=== PATIENT | female | born 1950 | race Caucasian/White ===

== ENCOUNTER 2019-12-20 15:35 | Emergency (ER) | payer MEDICARE, MEDICAID, SELFPAY ==
[2019-12-20 15:59] VITALS: BP 155/85; PULSE 97; RESP 18; TEMP 37.4; O2SAT 94
--- NOTE | 2019-12-20 17:04 | ED.WEAKNESS ---
HPI - Weakness General Chief complaint: Weakness Stated complaint: Bilateral swelling of knees and sob Source: patient Mode of arrival: ambulatory History of Present Illness HPI Narrative: Laxmi Pena is a 69-year-old who complains of 3 days of the following: Heavy weight on both shoulders and upper arms at rest, made worse with flexion or abduction. Unable to go beyond 90?, worse on the right side, as well as pain and swelling in the right knee, and some mild discomfort in the left (which she attributes to increased use because of pain on the right). Pain increases with flexion/extension - particularly standing up from sitting position. She describes the shoulder pain is squeezing and pressure. The righ should pain was much more severe yesterday than today. Her knees have not been popping or giving way. 2 weeks ago she developed rhinorrhea cough and nausea with diffuse myalgias. She was started on a course of antibiotics for 7 days. Her symptoms were gone for 3 - 4 days, until 3 days ago. Related Data Allergies Allergy/AdvReac Type Severity Reaction Status Date / Time codeine Allergy Unknown Verified 12/20/19 16:05 Review of Systems Constitutional: Constitutional: Reports no additional constitutional complaints ENT: Denies nasal congestion and Denies sore throat Cardiovascular: Cardiovascular: Denies chest pain and Denies pedal edema Respiratory: Comments: Minor dyspnea with exertion, no cough Gastrointestinal: Comments: no nausea vomiting diarrhea or abdomin Genitourinary: Comments: no dysuria Musculoskeletal: Musculoskeletal: Reports no additional musculoskeletal complaints Integumentary/Breasts: Comments: no rash Neurologic: Denies numbness Psychiatric: Psychiatric: Denies anxiety and Denies depression [facility] Surgical History Surgical History (Updated 12/20/19 @ 18:40 by Nestor Gonzalez MD) H/O: hysterectomy Family History Family History (Updated 12/20/19 @ 18:41 by Nestor Gonzalez MD) Mother CAD (coronary artery disease) COPD (chronic obstructive pulmonary disease) Father CHF (congestive heart failure) Exam Narrative: Exam Narrative: sitting on the side of the bed. Affect is flat. Const: General: no acute distress Orientation/consciousness: patient oriented x3 HENMT: Head: normal to inspection Face and sinus: no sinus tenderness Mouth: Yes Normal oral and palatal mucosa present Throat: posterior oropharynx normal Eyes: Conjunctivae: conjunctivae normal Neck: Other: 1+ tonsillar lymph nodes slight tenderness Chest: Chest palpation & inspection: normal inspection of the chest and no tenderness Resp: Effort & Inspection: normal respiratory effort Auscultation: clear to auscultation bilaterally Cardio: Rate: regular rate Rhythm: regular rhythm GI: GI Palp: Yes Soft to palpation, No Tenderness to palpation present (GI) and No Guarding due to palpation present (GI) : General: Yes no CVA tenderness Neuro: General: no focal motor deficits Extrem: Other: tender right more than left anterior subacromial region. No crepitation with range of motion pain with abduction of about 80? on the right side at about 90? on the left side. Pain with internal rotation against resistance Exam of the right knees are difficult secondary to obesity. There may be minor swelling INR Cialis the patellar tendons. The medial patella area is tender. No pain with patellar compression Course Course Emergency Course: Pain decreased after dose of ibuprofen. Pt advised of results. Plan: rest. No work 12/21 - 12/23. Follow up with PCP Vital Signs Vital signs: Vital Signs Temperature 37.4 C 12/20/19 15:59 Pulse Rate 97 12/20/19 15:59 Respiratory Rate 18 12/20/19 15:59 Blood Pressure 155/85 H 12/20/19 15:59 Pulse Oximetry 94 12/20/19 15:59 Temperature 37.4 C 12/20/19 15:59 Pulse Rate 97 12/20/19 15:59 Respiratory Rate 18 12/20/19 18:58 Blood Pressure 155
[2019-12-20] MEDS: IBUPROFEN 600 MG TABLET PO (17:16)
[2019-12-20 17:30] LABS: Basophils Absolute Auto 0.07 K/mm3 (0.00-0.10); Eosinophils Absolute Auto 0.14 K/mm3 (0.02-0.50); Hematocrit 41.7 % (35.0-42.0); Hemoglobin 13.3 g/dL (11.7-13.8); Immature Granulocyte Absolute 0.02 K/mm3 (0.00-0.00); Immature Granulocyte Percent A 0.3 % (0.0-0.0); Lymphocytes Absolute Auto 2.64 K/mm3 (1.10-4.50); Lymphocytes Percent Auto 38.7 % (18.0-42.0); Mean Corpuscular HGB Conc 31.9 g/dL (32.0-36.0); Mean Corpuscular Hemoglobin 29.8 pg (27.0-31.0); Mean Corpuscular Volume 93.3 fL (78.0-102.0); Mean Platelet Volume 9.9 fl (9.2-11.8); Monocytes Absolute Auto 0.43 K/mm3 (0.10-0.90); Monocytes Percent Auto 6.3 % (2.0-11.0); Neutrophils Absolute Auto 3.5 K/mm3 (1.7-7.2); Neutrophils Percent Auto 51.7 % (50.0-70.0); Platelet Count Result 325 K/mm3 (150-420); Red Blood Count 4.47 M/mm3 (4.20-5.40); Red Cell Distribution Width 13.4 % (11.6-14.4); White Blood Count 6.8 K/mm3 (4.8-10.8)
[2019-12-20 17:30] LABS: Add Urine Microscopic? YES; Appearance Urine Sl Cloudy (Clear); Bilirubin Urine Negative (Negative); Blood Urine Negative (Negative); Color Urine Straw (Yellow); Glucose Urine UA Negative (Negative); Ketones Urine Negative (Negative); Leukocyte Esterase Ur Negative (Negative); Nitrate Urine Negative (Negative); Protein Urine Trace (Negative); Specific Grav Ur 1.025 (1.010-1.020); Urobilinogen Urine 0.2 mg/dL (0.2-1.0)
[2019-12-20 17:35] LABS: Bacteria Urine 1+ /hpf; Mucus Urine Moderate /lpf; RBC Urine None seen /hpf (0-2); Squamous Epithelial Cell Urine Many /hpf (Few); WBC Urine None seen /hpf (0-3)
[2019-12-20 17:48] LABS: Alanine Aminotransferase 68 U/L (14-59); Albumin Level 3.8 g/dL (3.4-5.0); Alkaline Phosphatase 102 U/L (46-116); Aspartate Amino Transferase 44 U/L (15-37); Bilirubin,Total 0.2 mg/dL (0.00-1.00); Blood Urea Nitrogen 24 mg/dL (7-18); CRP 1.4 mg/dL (0.0-0.9); Calcium 8.6 mg/dL (8.5-10.1); Carbon Dioxide 28 mmol/L (21-32); Chloride 105 mmol/L (98-108); Estimated CRCL calculation 67 ml/min; Estimated Glomerular Filt Rate > 60; Glucose 159 mg/dL (70-99); Osmolality Calculated 303 mOsm/kg (285-295); Sodium 143 mmol/L (136-145); Total Protein 8.1 g/dL (6.4-8.2)
[2019-12-20 18:58] VITALS: RESP 18
== END 2019-12-20 18:59 | disposition home or self-care (01) ==
PROVIDERS: Emergency Provider Family Medicine
DX: M25.562 Pain in left knee (principal); M25.561 Pain in right knee
CPT/HCPCS: 36415; 80053; 81001; 85025; 86140; 99283; A9270